=== PATIENT | female | born 1960 | race Caucasian/White ===

== ENCOUNTER 2020-01-08 05:32 | Observation (INO) ==
[2020-01-08] MEDS ORDERED: LORazepam 2 MG/ML VIAL ONE (05:38)
[2020-01-08] MEDS ORDERED: LORazepam 2 MG/ML VIAL IV ONE (05:41)
[2020-01-08 06:09] LABS: POC Blood Urea Nitrogen 28 mg/dl (6-20); POC CO2 14 mmol/L (22-30); POC Calcium, Ionized 1.15 mmol/L (1.16-1.32); POC Chloride 116 mmol/L (96-108); POC Creatinine 1.3 mg/dl (0.6-1.1); POC Glucose, Random 114 mg/dL (70-105); POC Sodium 140 mmol/L (133-145)
[2020-01-08 06:20] LABS: Basophils # (Auto) 0.04 K/mcL (0.00-0.30); Basophils % (Auto) 0.5 % (0.0-2.0); Eosinophils # (Auto) 0.05 K/mcL (0.00-0.70); Eosinophils % (Auto) 0.6 % (0.0-7.0); Granulocytes % (Auto) 74.4 % (38.0-78.0); Hematocrit 32.3 % (34.1-44.9); Hemoglobin 10.3 g/dL (11.2-15.7); Lymphocytes # (Auto) 1.65 K/mcL (1.50-4.80); Lymphocytes % (Auto) 18.9 % (15.5-49.0); Mean Corpuscular HGB Conc 31.9 g/dL (31.0-36.0); Mean Platelet Volume 10.5 fL (7.4-10.4); Monocytes # (Auto) 0.49 K/mcL (0.10-0.90); Monocytes % (Auto) 5.6 % (1.0-12.0); Platelet Count 187 K/mcL (140-440); RBC 3.02 M/mcL (3.59-5.38); WBC 8.7 K/mcL (4.50-11.00)
[2020-01-08 06:33] LABS: INR 1.1 (0.9-1.1); Prothrombin Time 14.2 sec (11.9-14.5)
--- NOTE | 2020-01-08 06:33 | Emergency Department Note ---
General Adult HPI - General Chief complaint: Seizure Stated complaint: seizure Time Seen by Provider: 01/08/20 05:49 Mode of arrival: EMS - History of Present Illness HPI Narrative: 59-year-old patient presenting to the emergency department chief complaint of fall. Past medical history is significant for falls, bipolar. The mechanism of fall was ground-level possibly mechanical/syncope/seizure related patient did have tonic-clonic seizure on arrival to the emergency department. Patient has not had recent change in medication. Patient somnolent on initial exam. Apparent injuries include ankle fracture dislocation. Potential closed head injury. Patient has had recent multiple falls. This fall was unwitnessed her aunt whom she lives with heard a loud thump. - Related Data Home Medications Medication Instructions Recorded Confirmed levothyroxine 50 mcg capsule 50 mcg PO QDAY 08/19/19 01/04/20 atenolol 25 mg tablet 25 mg PO QDAY tab 01/04/20 DULoxetine HCL [Cymbalta] 1 tab PO DAILY 01/08/20 01/08/20 Divalproex Sodium [Divalproex 3 tab PO HS 01/08/20 01/08/20 Sodium ER] QUEtiapine FUMARATE [Seroquel] 3 tab PO HS 01/08/20 01/08/20 Previous Rx's Medication Instructions Recorded nabumetone 500 mg tablet 500 mg PO BID #60 tab 09/14/19 gabapentin 800 mg tablet 1,600 mg PO BID #120 tab 10/11/19 hydroxychloroquine 200 mg tablet 200 mg PO BID #60 tab 11/23/19 amitriptyline 25 mg tablet 25 mg PO QHS #30 tab 12/28/19 cholecalciferol (vitamin D3) 1,250 See Rx Instructions .ROUTE 01/03/20 mcg (50,000 unit) capsule .COMPLEX #12 unknown measurement unit code: capsule eszopiclone 3 mg tablet 3 mg PO HS #30 tab 01/04/20 Crutch 1 each MC DAILY #1 each 01/08/20 Allergies Allergy/AdvReac Type Severity Reaction Status Date / Time naproxen [From Naprosyn] Allergy Unknown Rash Verified 01/04/20 09:00 Review of Systems All systems ED: reviewed and negative except as stated. Past Medical History - Past Medical History PMFSH Narrative: All Active Problems (Last Reviewed 01/04/20 @ 08:40 by Jose Manuel Chung MD) Acute on chronic renal failure (Chronic) Long-term use of high-risk medication (Acute) Essential hypertension (Chronic) Elevated serum creatinine (Chronic) Polyarthralgia (Acute) Rheumatoid factor positive (Acute) SUSIE positive (Acute) Tobacco abuse (Chronic) Anemia (Chronic) DVT prophylaxis (Chronic) Chronic kidney disease (Chronic) Falls (Acute) Contusion of knee, right (Acute) Ankle sprain (Acute) Anemia (Acute) Bradycardia (Acute) Taking multiple medications for chronic disease (Acute) Cigarette smoker (Chronic) Osteoarthritis (Chronic) Hyperlipidemia (Chronic) Depression (Chronic) Sleep apnea (Chronic) Menopause (Chronic) Back pain (Acute) Knee pain (Chronic) Hyperextension injury (Chronic) Medication monitoring encounter (Chronic) Preoperative examination (Chronic) Neck pain (Chronic) Tachycardia (Chronic) Anxiety (Chronic) Personality disorder (Chronic) Bipolar 1 disorder, depressed (Chronic) Cervical stenosis of spine (Chronic) Leg weakness, bilateral (Chronic) Gastroenteritis (Chronic) Acute renal failure (Chronic) Abnormal mammogram (Chronic) Weakness (Chronic) Frequent falls (Chronic) Normal physical examination (Chronic) Nonspecific abnormal results of kidney function study (Chronic) Hypothyroidism (Chronic) UTI (urinary tract infection) (Chronic) Cellulitis (Chronic) Pelvic contusion (Chronic) Dental abscess (Chronic) Erythematous papules of skin (Chronic) Infected wound (Chronic) Medical history: Reports: other (Chronic cervical and back pain) Psychiatric history: Reports: bipolar - Social History smoking status: Current every day smoker Alcohol use: Reports: Unknown Drug use: Reports: unknown Physical Exam Primary survey: Airway: Patient without visible external evidence of airway compromise no acute trauma to the oral maxillofacial area is appreciated Breathing: pt with spontaneous respirations, with excellent oxygenation on initial evaluation Circulation: Patient without obvious external hemorrhage in need of acute control, patient is perfusing extremities well without evidence of shock Disability: Basic neurological examination reveals somnolent controlling airway, is moving all extremities Secondary survey: General: sleepy however during the course of initial evaluation pt with impro ving GCS spontaneously Head: Atraumatic, normocephalic Eyes: Extraocular movements intact, PERRLA Neck: Trachea midline, full range of motion Chest: Symmetrical chest wall rise, clear to auscultation bilateral without wheezes rales crackles or rubs Cardiovascular: Patient with excellent perfusion to the extremities, regular rate and rhythm without M/R/G Abdomen: Nontender nondistended normoactive bowel sounds no masses no hepatosplenomegaly no rebound no guarding Extremities: Full range of motion joints, warm well perfused; right ankle with obvious deformity and crepitus clearly dislocated as pt was already sedated from combination of seizure and ativan this was reduced and x rays obtained, toes and pulse assessed at 06:21 with good perfusion Neuro: arousable, pulling intentionally at c-collar which was placed secondary to unknown trauma presentation, cranial nerves II through XII grossly intact Psychiatric: unassessable Course Vital Signs Pulse Rate 100 H 01/08/20 05:33 Respiratory Rate 17 01/08/20 05:33 Blood Pressure 111/58 01/08/20 05:33 Pulse Oximetry (%) 98 01/08/20 05:33 Pulse Rate 88 01/08/20 08:59 Respiratory Rate 21 01/08/20 08:59 Blood Pressure 137/75 01/08/20 08:46 Pulse Oximetry (%) 100 01/08/20 08:59 Procedures - Orthopedic Fracture Reduction Fracture #1 Time Out Performed: Yes Side: right Fracture Reduction Location: other (Right ankle bimalleolar) Analgesia: other (Patient with 2 mg Ativan was also postictal at that time, minimal evidence of pain) Technique: traction/counter-traction Post Reduction X-rays Demonstrate: acceptable reduction Post-reduction neuro exam: intact, other (Patient was moving toes as well as evidence of excellent perfusion) Splint Applied: Yes Patient Tolerated Procedure: well Medical Decision Making - MDM Narrative Medical decision making narrative: Focus of initial assessment was hemodynamic stability, however this was frequently reassessed during stay in the emergency department as this is a highly dynamic aspect of trauma. Focus was on injuries to the head chest abdomen and pelvis primarily with additional concerns for extremity injury taking care to avoid distracting injuries. Despite patient appearing uninjured aside from the right ankle we assumed there were potential severe injuries that we need to identify. Differential diagnosis for the fall includes medication induced, psychiatric disorders, syncope, presyncope, vertigo, electrolyte abnormality, hypoglycemia, cardiac arrhythmia, postural changes, dehydration, and brainstem lesions. Diana ent with x-rays and imaging to areas of concern to assess for potential fracture/dislocation. Patient with right ankle bimalleolar fracture dislocation. CT head neck noncontrast as well as CT chest abdomen pelvis were performed along with plain films of the right ankle. Consideration was given to intubation however patient's THERMOSPRAY OPERATOR improved even during just getting the ankle splinted. Given patient's recent multiple falls consideration given to admission to the hospital I actually discussed the case with the hospitalist as well as the cook house supervisor and we will admit the patient. - Lab Data Result diagrams: 01/08/20 06:01 01/08/20 06:01 Lab Results 01/08/20 01/08/20 01/08/20 Range/Units 06:01 06:01 06:01 WBC 8.7 (4.50-11.00) K/mcL RBC 3.02 L (3.59-5.38) M/mcL Hgb 10.3 L (11.2-15.7) g/dL Hct 32.3 L (34.1-44.9) % POC Hct 30.0 L (36.0-48.0) % MCV 107.0 H (80.0-100.0) fL MCH 34.1 H (26.0-34.0) pg MCHC 31.9 (31.0-36.0) g/dL RDW 14.0 (11.5-14.5) % Plt Count 187 (140-440) K/mcL MPV 10.5 H (7.4-10.4) fL Gran % 74.4 (38.0-78.0) % Lymph % (Auto) 18.9 (15.5-49.0) % Ralls % (Auto) 5.6 (1.0-12.0) % Eos % (Auto) 0.6 (0.0-7.0) % Baso % (Auto) 0.5 (0.0-2.0) % Gran # 6.49 (1.80-8.00) K/mcL Lymph # (Auto) 1.65 (1.50-4.80) K/mcL Ralls # (Auto) 0.49 (0.10-0.90) K/mcL Eos # (Auto) 0.05 (0.00-0.70) K/mcL Baso # (Auto) 0.04 (0.00-0.30) K/mcL PT 14.2 (11.9-14.5) sec INR 1.1 (0.9-1.1) POC Sodium 140 (133-145) mmol/L Sodium 139 (133-145) mmol/L POC Potassium 4.0 (3.3-5.1) mmol/L Potassium 3.8 (3.3-5.1) mmol/L POC Chloride 116 H (96-108) mmol/L Chloride 107 (96-108) mmol/L Carbon Dioxide 14 L (22-30) mmol/L POC Total CO2 14 L (22-30) mmol/L Anion Gap 18.0 H (8-16) POC BUN 28 H (6-20) mg/dl BUN 29 H (6-20) mg/dl Creatinine 1.3 H (0.6-1.1) mg/dl POC Creatinine 1.3 H (0.6-1.1) mg/dl GFR Calculation 46 Glucose 119 H (70-105) mg/dL POC Glucose 114 H (70-105) mg/dL Calcium 8.7 (8.6-10.4) mg/dl POC WB Ioniz Calcium 1.15 L (1.16-1.32) mmol/L Total Bilirubin 0.2 (0.0-1.0) mg/dL AST 70 H (0-37) U/l ALT 82 H (0-40) U/l Alkaline Phosphatase 103 (39-117) U/L Troponin T (0-0.03) ng/ml Total Protein 6.7 (5.9-8.4) gm/dL Albumin 3.8 (3.2-5.2) gm/dL Globulin 2.9 (2.2-3.7) gm/dL Albumin/Globulin Ratio 1.3 (1.0-2.3) 01/08/20 Range/Units 06:01 WBC (4.50-11.00) K/mcL RBC (3.59-5.38) M/mcL Hgb (11.2-15.7) g/dL Hct (34.1-44.9) % POC Hct (36.0-48.0) % MCV (80.0-100.0) fL MCH (26.0-34.0) pg MCHC (31.0-36.0) g/dL RDW (11.5-14.5) % Plt Count (140-440) K/mcL MPV (7.4-10.4) fL Gran % (38.0-78.0) % Lymph % (Auto) (15.5-49.0) % Ralls % (Auto) (1.0-12.0) % Eos % (Auto) (0.0-7.0) % Baso % (Auto) (0.0-2.0) % Gran # (1.80-8.00) K/mcL Lymph # (Auto) (1.50-4.80) K/mcL Ralls # (Auto) (0.10-0.90) K/mcL Eos # (Auto) (0.00-0.70) K/mcL Baso # (Auto) (0.00-0.30) K/mcL PT (11.9-14.5) sec INR (0.9-1.1) POC Sodium (133-145) mmol/L Sodium (133-145) mmol/L POC Potassium (3.3-5.1) mmol/L Potassium (3.3-5.1) mmol/L POC Chloride (96-108) mmol/L Chloride (96-108) mmol/L Carbon Dioxide (22-30) mmol/L POC Total CO2 (22-30) mmol/L Anion Gap (8-16) POC BUN (6-20) mg/dl BUN (6-20) mg/dl Creatinine (0.6-1.1) mg/dl POC Creatinine (0.6-1.1) mg/dl GFR Calculation Glucose (70-105) mg/dL POC Glucose (70-105) mg/dL Calcium (8.6-10.4) mg/dl POC WB Ioniz Calcium (1.16-1.32) mmol/L Total Bilirubin (0.0-1.0) mg/dL AST (0-37) U/l ALT (0-40) U/l Alkaline Phosphatase (39-117) U/L Troponin T < 0.01 (0-0.03) ng/ml Total Protein (5.9-8.4) gm/dL Albumin (3.2-5.2) gm/dL Globulin (2.2-3.7) gm/dL Albumin/Globulin Ratio (1.0-2.3) Critical Care Time Critical Care Time: Yes Total Critical Care Time: 60 Disposition Pt seen by ICEBOX WORKER/PA only: No Clinical Impression: Ankle fracture, bimalleolar, closed Qualifiers: Encounter type: initial encounter Laterality: right Qualified Code(s): S82.841A - Displaced bimalleolar fracture of right lower leg, initial encounter for closed fracture Epileptic seizure Qualifiers: Epilepsy type: generalized idiopathic Intractability: not intractable Status epilepticus: without status epilepticus Qualified Code(s): G40.309 - Generalized idiopathic epilepsy and epileptic syndromes, not intractable, without status epilepticus Disposition: Xfer As Outpt/Obs ([facility]) Condition: Good Prescriptions: Crutch 1 each MC DAILY #1 each Transmission Status: Pending to [facility][id number] Referrals: Rodrick Harris MD [Physician] -
[2020-01-08 06:40] LABS: ALT/SGPT 82 U/l (0-40); AST/SGOT 70 U/l (0-37); Albumin 3.8 gm/dL (3.2-5.2); Albumin/Globulin Ratio 1.3 (1.0-2.3); Alkaline Phosphatase 103 U/L (39-117); Bilirubin,Total 0.2 mg/dL (0.0-1.0); Blood Urea Nitrogen 29 mg/dl (6-20); Calcium 8.7 mg/dl (8.6-10.4); Chloride 107 mmol/L (96-108); Globulin 2.9 gm/dL (2.2-3.7); Glomerular Filtration Rate 46; Glucose 119 mg/dL (70-105)
[2020-01-08 06:44] LABS: Carbon Dioxide 14 mmol/L (22-30)
[2020-01-08] MEDS ORDERED: HYDROmorphone 2 MG/ML VIAL IV SCH ×2 (07:00→12:22)
--- NOTE | 2020-01-08 09:58 | Internal Med History&Physical ---
Medical - H&P: HPI Patient information: Note initiated : 01/08/20 at 9:52 am Service Date, if different from initiated Date: [] Patient: Abril Colon a 59 y/o F admitted on for seizure. Chief Complaint: [] Chief complaint: Fall/seizure History of present illness: Ms. Colon is a 59 year old F with a history of bipolar disorder/CKD stage III/hypertension/hypothyroidism/anxiety depression who presents to the ER after sustaining a fall With resulting right ankle injury. Patient lives with her aunt and was sneaking into the kitchen to place an Easter card for her Aunt. She had an episode where she endorses as similar to the previous ones where in her legs suddenly gave up and she fell. She was on a stair and landed on her right side twisting and injuring her right ankle. She was evaluated in the ER where she subsequently sustained an unwitnessed partial seizure. She was administered Ativan and subsequently underwent ankle reduction by ER physician. Imaging revealed ankle fracture and subsequently orthopedics was consulted. Hospital service consulted for admission While patient will undergo operative intervention. At time of evaluation patient is alert and was able to answer most the question and endorse history as above. She denies seizure-like episode. She denies vision changes chest pain tearing neck pain diaphoresis lightheadedness or vertigo. She has had multiple prior similar episode which he attributes to hypotension and her medications have been modified multiple times. She has had multiple falls in the past but in the last year has only 2 falls. She denies fever, chills, diarrhea, dysuria, headache, photophobia. 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 This leads to urine concentrating defect and makes her dehydration prone. Third issue is some of the side effects of her psychotropic medications in terms of her blood pressure Long-term use of high-risk medication (Acute) Essential hypertension (Chronic) No longer on beta-tru and RAASI therapy. 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 Polyarthralgia (Acute) Rheumatoid factor positive (Acute) SUSIE positive (Acute) Tobacco abuse (Chronic) Anemia (Chronic) DVT prophylaxis (Chronic) Chronic kidney disease (Chronic) Cigarette smoker (Chronic) Osteoarthritis (Chronic) Hyperlipidemia (Chronic) Depression (Chronic) Sleep apnea (Chronic) Menopause (Chronic) Back pain (Acute) Knee pain (Chronic) Hyperextension injury (Chronic) Medication monitoring encounter (Chronic) Preoperative examination (Chronic) Neck pain (Chronic) Tachycardia (Chronic) Anxiety (Chronic) Personality disorder (Chronic) Bipolar 1 disorder, depressed (Chronic) Cervical stenosis of spine (Chronic) Leg weakness, bilateral (Chronic) Gastroenteritis (Chronic) Acute renal failure (Chronic) Abnormal mammogram (Chronic) Weakness (Chronic) Frequent falls (Chronic) Normal physical examination (Chronic) Nonspecific abnormal results of kidney function study (Chronic) Hypothyroidism (Chronic) UTI (urinary tract infection) (Chronic) Cellulitis (Chronic) Pelvic contusion (Chronic) Dental abscess (Chronic) Erythematous papules of skin (Chronic) Infected wound (Chronic) Hypotension (Acute) Dehydration prone due to tubulointerstitial nephritis Medication induced hypotension certainly due to her KIRT inhibitor, high-dose beta-tru, and any effects of her psychotropic medications on her blood pressure. Minimum dose of KIRT inhibitor for her tremors and tachycardia, do not treat blood pressures less than 160/90 Surgical History Cervical vertebral fusion (Chronic) C6-C5 History of cholecystectomy (Chronic) History of surgery (Chronic) Cyst excised from the back History of tonsillectomy (Chronic) History of total knee arthroplasty (Chronic ~2011) Right Status post repair of nerve (Chronic ~2008) Neuroplasty with transposition of Ulnar Nerve Family History Other Adopted No pertinent family history Social History marital status: smoking status: Current every day smoker tobacco type: cigarettes per day: 4 pack-years: 30 alcohol intake frequency: former alcohol drinker substance use type: does not use Medical - H&P: Meds Home Medications Medication Instructions Recorded Confirmed Type levothyroxine 50 mcg capsule 50 mcg PO QDAY 08/19/19 01/08/20 History nabumetone 500 mg tablet 500 mg PO BID #60 tab 09/14/19 01/08/20 Rx gabapentin 800 mg tablet 1,600 mg PO BID #120 tab 10/11/19 01/08/20 Rx hydroxychloroquine 200 mg tablet 200 mg PO BID #60 tab 11/23/19 01/08/20 Rx amitriptyline 25 mg tablet 25 mg PO QHS #30 tab 12/28/19 01/08/20 Rx cholecalciferol (vitamin D3) 1,250 See Rx Instructions .ROUTE 01/03/20 01/08/20 Rx mcg (50,000 unit) capsule .COMPLEX #12 unknown measurement unit code: capsule atenolol 25 mg tablet 25 mg PO QDAY tab 01/04/20 01/08/20 History eszopiclone 3 mg tablet 3 mg PO HS #30 tab 01/04/20 01/08/20 Rx Crutch 1 each MC DAILY #1 each 01/08/20 Rx DULoxetine HCL [Cymbalta] 1 tab PO DAILY 01/08/20 01/08/20 History Divalproex Sodium [Divalproex 3 tab PO HS 01/08/20 01/08/20 History Sodium ER] QUEtiapine FUMARATE [Seroquel] 3 tab PO HS 01/08/20 01/08/20 History Allergies Allergy/AdvReac Type Severity Reaction Status Date / Time naproxen [From Naprosyn] Allergy Unknown Rash Verified 01/04/20 09:00 Medical - H&P: Exam - Constitutional Vitals: Pulse Resp BP Pulse Ox 88 21 137/75 100 01/08/20 08:59 01/08/20 08:59 01/08/20 08:46 01/08/20 08:59 General appearance: no acute distress Exam: Alert oriented head normocephalic Oral cavity dry no ear nose discharge Neck no lymphadenopathy S1-S2 regular rhythm no murmur Diminished breath sounds bases Abdomen soft nontender nondistended Lower extremity right ankle stabilized, no cyanosis clubbing or joint swelling erythema Skin no suspicious lesion Psych alert cooperative Neuro moving all 4 extremities Medical - H&P: Reslt - Labs CBC & Chem 7: 01/08/20 06:01 01/08/20 06:01 Labs: Short CBC 01/08/20 Range/Units 06:01 WBC 8.7 (4.50-11.00) K/mcL Hgb 10.3 L (11.2-15.7) g/dL Hct 32.3 L (34.1-44.9) % Plt Count 187 (140-440) K/mcL BMP 01/08/20 06:01 Sodium 139 Potassium 3.8 Chloride 107 Carbon Dioxide 14 L BUN 29 H Creatinine 1.3 H Glucose 119 H Calcium 8.7 Cardiac Enzymes 01/08/20 Range/Units 06:01 Troponin T < 0.01 (0-0.03) ng/ml Liver Function 01/08/20 Range/Units 06:01 Total Bilirubin 0.2 (0.0-1.0) mg/dL AST 70 H (0-37) U/l ALT 82 H (0-40) U/l Alkaline Phosphatase 103 (39-117) U/L Albumin 3.8 (3.2-5.2) gm/dL Medical - H&P: A/P (1) Ankle fracture, bimalleolar, closed Current visit: Yes Status: Acute * Right bimalleolar ankle fracture-immobilization/orthopedic evaluation * Pain management on as needed opioids * Witnessed seizure-status post 2 mg Ativan in ER * Frequent fall -unclear etiology. Start telemetry monitoring for arrhythmia/neurochecks/seizure watch/echocardiogram/orthostatics. Aggressive PT OT eval and treatment for gait and safety training * Hypertension-hold atenolol at this time. 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
[2020-01-08 11:29] LABS: Amphetamine Screen,Urine NONE DETECTED (NONDETECTED); Appearance,Urine CLEAR; Barbiturate Screen,Urine NONE DETECTED (NONDETECTED); Benzodiazepines Screen,Urine NONE DETECTED (NONDETECTED); Bilirubin,Urine NEG (NEG); Cannabinoid Screen,Urine NONE DETECTED (NONDETECTED); Cocaine Screen,Urine NONE DETECTED (NONDETECTED); Color,Urine STRAW; Culture Indicated,Urine NO; Glucose,Urine (UA) NEGATIVE (NEG); Ketones,Urine NEG (NEG); Leukocyte Esterase,Urine NEG /uL (NEG); Nitrate,Urine NEG (NEG); Opiate Screen,Urine NONE DETECTED (NONDETECTED); Oxycodone, Urine Screen NONE DETECTED (NONDETECTED); Phencyclidine Screen,Urine NONE DETECTED (NONDETECTED); Protein,Urine NEG (NEG); Specific Gravity,Urine 1.029 (1.000-1.035); Urine Blood NEG mg/dL (<0.03); Urobilinogen,Urine NEG (NEG)
--- NOTE | 2020-01-08 11:39 | XRay Report ---
CLINICAL INFORMATION: fall COMPARISON: None. FINDINGS: A mildly comminuted obliquely oriented Sepulveda B fracture of the distal fibular metaphysis appreciated. The proximal fragment is displaced 3 mm anteriorly and 3 mm medially. There is also a transverse mildly comminuted and minimally displaced fracture through the medial malleolus. There is a coronally oriented fracture through the posterior malleolus. Tibial plafond is displaced over 8 mm anteriorly. Moderate ankle effusion noted. IMPRESSION: Comminuted oblique displaced trimalleolar fracture Small transverse avulsion fracture off the dorsal cortex of the talar neck age-indeterminate. Old ununited fracture of the dorsal navicular. Interpreted and Authenticated by: Salas Freeman 01/08/20
--- NOTE | 2020-01-08 11:49 | Cat Scan Report ---
CLINICAL INFORMATION: Trauma COMPARISON: 05/09/2018 TECHNIQUE: 2.5 mm helical slices were obtained in the skull base to vertex. Following reconstruction, axial reformatted images were reviewed at bone and parenchymal windows. The exam was performed using radiation dose optimization techniques including, but not limited to, automated exposure control, adjustment of the mA and/or kV according to patient size and use of iterative reconstruction technique. FINDINGS: The ventricles, sulci, fissures, and cisterns are normal to minimally enlarged bowel with mild age-related atrophy. No extra-axial fluid collections are identified. An 8 mm remote lacunar infarct in the head of the left caudate nucleus is again seen. Minimal chronic ischemic changes in the cerebral white matter. There is no evidence of hemorrhage, mass effect, or edema. Bone windows show no osseous abnormality. IMPRESSION: Mild atrophy and minimal chronic ischemic changes in the deep cerebral white matter. 8 mm remote lacunar infarct head of the left caudate nucleus. No cerebral hemorrhage or acute posttraumatic change Interpreted and Authenticated by: Salas Freeman 01/08/20
[2020-01-08] MEDS ORDERED: ACETAMINOPHEN 325 MG TABLET PO PRN (12:22)
[2020-01-08] MEDS ORDERED: POTASSIUM CHLORIDE 20 MEQ PACKET PO PRN (12:22)
[2020-01-08] MEDS ORDERED: ACETAMINOPHEN 650 MG/65 ML BOTTLE IV PRN (12:22)
[2020-01-08] MEDS ORDERED: ONDANSETRON 4 MG/2 ML VIAL IV PRN (12:22)
[2020-01-08] MEDS ORDERED: POLYETHYLENE GLYCOL 3350 17 GM PACKET PO PRN (12:22)
[2020-01-08] MEDS ORDERED: BISACODYL 10 MG SUPP.RECT PR PRN (12:22)
[2020-01-08] MEDS ORDERED: ONDANSETRON 4 MG ODT TABLET SL PRN (12:22)
--- NOTE | 2020-01-08 12:23 | Cat Scan Report ---
CLINICAL INFORMATION: Trauma COMPARISON: Cervical spine MRI 01/21/2019 TECHNIQUE: 0.625 mm helical slices were obtained from the skull base through the superior T2 end plate, and following reconstruction, 2.5 mm sagittal, coronal and axial reformations were then processed. The exam was reviewed at bone and soft tissue windows. The exam was performed using radiation dose optimization techniques including, but not limited to, automated exposure control, adjustment of the mA and/or kV according to patient size and use of iterative reconstruction technique. FINDINGS: Solid anterior fusion changes C4-5 is provided by interbody graft, anterior plate and screws. There is also solid fusion between C6 and C7 vertebral bodies which may be congenital or surgical. The cervical spine is anatomically aligned. Cervical cord is normal in contour and caliber without evidence of hemorrhage. There is mild thickening of the soft tissues in the expected location the cricopharyngeus which may indicate fibrosis - please correlate with dysphagia. The left first and second maxillary molars are absent soft tissue within the alveolar region likely indicating fibrosis or less likely formation. There is heavy calcific plaque present in both carotid arteries more prominent on the right. The C2-3 disc level is normal. At C3-4, there is mild broad disc protrusion right-sided asymmetry results in mild central canal and right lateral recess IV foraminal narrowing. At C4-5 fused level, there is moderate marginal spurring resulting in moderate central canal, severe right and mild left lateral recess/ IV foraminal narrowing impinging the exiting right C5 nerve root At C5-6, the central canal, lateral recess and IV foramen are normal width. At C6-7 minimal broad disc protrusion slightly impinging the anterior thecal sac At C7-T1 disc level is normal. IMPRESSION: 1. No fracture or posttraumatic change. 2. Heavy calcific plaque in both carotid bifurcations. On the basis of both today's exam and the prior cervical MRI, there is almost certainly a high-grade stenosis in the proximal right internal carotid artery. Suggest CT arteriogram. 3. C4-5 anterior fusion - solid. Moderate marginal spurring results in moderate central canal and severe right lateral recess/ IV foraminal mild left lateral recess narrowing with impingement of the exiting right C5 nerve root. Mild impingement of the cervical cord. 4. Mild fibrosis in the cricopharyngeal region of the cervical esophagus - please correlate with dysphagia Interpreted and Authenticated by: Salas Freeman 01/08/20
--- NOTE | 2020-01-08 12:34 | Cat Scan Report ---
CLINICAL INFORMATION: Trauma COMPARISON: None. TECHNIQUE: Enteric contrast was utilized. 80 cc of Isovue-370 were injected intravenously, and 50 seconds later 2.5 mm helical slices were obtained from the lung apices through the subtrochanteric regions of the femurs. Following reconstruction, 2.5 mm sagittal, coronal and axial reformatted images were processed and reviewed at multiple windows and levels. 7 mm MIP reconstructions were obtained through the lungs to optimize nodule detection.The exam was performed using radiation dose optimization techniques including, but not limited to, automated exposure control, adjustment of the mA and/or kV according to patient size and use of iterative reconstruction technique. FINDINGS: Pulmonary parenchymal windows show minimal scattered patchy ground glass airspace disease without both lungs of uncertain etiology and chronicity. There is also minor atelectasis both posterior dependent lower lobes. No effusions or evidence of pneumothorax following trauma. The mediastinal windows show the heart is mildly enlarged. Thoracic aorta and pulmonary arteries are normal with no evidence of mediastinal hemorrhage. The esophagus is unremarkable. There is no adenopathy. Sumit images show the gallbladder is surgically absent. The intrahepatic common hepatic and common bile ducts are moderately dilated - CBD is 12 mm. Findings suggestive of postcholecystectomy papillary stenosis. The liver shows no abnormality. The pancreas, both kidneys, adrenal glands, spleen and aorta are normal in size configuration and attenuation without focal lesion. There is no free air, free fluid or adenopathy Pelvic images show portable postmenopausal uterus. Ovaries not identified likely due to atrophy in the urinary bladder is normal. The stomach, small bowel, appendix and large bowel are unremarkable. Bone windows show grade 1 spondylolisthesis due to degenerative facet disease with broad disc protrusion resulting in severe central canal bilateral lateral recess and IV foraminal narrowing with impingement of the exiting L4 and descending L5 nerve roots. There is no evidence of fracture throughout the chest abdomen or pelvis IMPRESSION: 1. No acute posttraumatic change throughout the chest, abdomen or pelvis. 2. Vague patchy groundglass airspace disease throughout both lungs of uncertain chronicity and etiology. Suggest two-view upright chest x-ray one to two days if the patient develops respiratory symptoms. 3. Grade 1 L4-5 spondylolisthesis with broad disc protrusion resulting in moderate central canal and severe bilateral lateral recess/ IV foraminal narrowing impinging exiting L4 and descending L5 nerve roots. 4. Dilatation of the intrahepatic and common bile ducts suggesting postcholecystectomy papillary stenosis at please correlate with obstructive LFT pattern Interpreted and Authenticated by: Salas Freeman 01/08/20
[2020-01-08] MEDS: HYDROmorphone 2 MG/ML VIAL IV PRN ×3 (13:30→19:05)
[2020-01-08] MEDS: 0.9 % SODIUM CHLORIDE 10 ML SYRINGE IV SCH ×2 (13:38→20:38)
[2020-01-08] MEDS: 0.9 % SODIUM CHLORIDE 1,000 ML IV SCH (13:38)
[2020-01-08] MEDS: HYDROcodone/APAP 5/325MG TABLET PO PRN ×2 (15:57→20:36)
--- NOTE | 2020-01-08 17:08 | History and Physical Report ---
DATE OF ADMISSION: 01/08/2020 CHIEF COMPLAINT: Right ankle pain. HISTORY OF PRESENT ILLNESS: This is a 59-year-old female who presented to the Emergency Department last evening in the middle of the night, complaining of right ankle pain after sustaining a fall. She reports she felt like her blood pressure was low, which resulted in her fall. She does report multiple falls in the past, but denies any fever, chills, headache, dizziness, or any other significant pain currently. I was consulted to further evaluate her right ankle pain, which resulted in a trimalleolar ankle fracture. REVIEW OF SYSTEMS: A 10-point review of system was performed was negative except as noted in HPI. PAST MEDICAL HISTORY: Significant for bipolar disorder; chronic kidney disease, stage III; hypertension; hypothyroidism; anxiety; depression. SURGICAL HISTORY: Noncontributory. FAMILY HISTORY: The patient was adopted and has no pertinent family history. SOCIAL HISTORY: The patient does admit to being a current every day smoker. She also admits to being a former alcohol user. She denies any recreational drug use. MEDICATIONS: Include: 1. Levothyroxine 50 mcg p.o. every day. 2. Nabumetone 500 mg p.o. b.i.d. 3. Gabapentin 800 mg, she takes 1600 mg p.o. b.i.d. 4. Hydroxychloroquine 200 mg p.o. b.i.d. 5. Amitriptyline 25 mg p.o. at bedtime. 6. Vitamin D3. 7. Atenolol 25 mg p.o. every day. 8. Eszopiclone 3 mg p.o. at bedtime. 9. Duloxetine 1 tab p.o. daily. 10. Divalproex 3 tabs p.o. at bedtime. 11. Seroquel 3 tabs p.o. at bedtime. ALLERGIES: Include naproxen, which resulted in a rash. PHYSICAL EXAMINATION: VITAL SIGNS: Blood pressure is 137/75, pulse 88, respirations 21, pulse ox is 100% on room air. GENERAL: The patient is resting comfortably currently and does not appear to be in any acute distress. HEENT: The head is normocephalic, atraumatic. Eyes are equal, round, reactive to light and accommodation. ENT is otherwise unremarkable. NECK: Supple, without lymphadenopathy. RESPIRATORY: Lungs are diminished bilaterally in the bases without any obvious wheezes, rhonchi, or crackles. ABDOMEN: Soft, nondistended, nontender to palpation. Bowel sounds are present in all 4 quadrants. EXTREMITIES: Right lower extremity, the ankle inspection reveals diffuse swelling and ecchymosis over the dorsum and medial and lateral aspects of the ankle without evidence of an open fracture. Passive and active range of motion of the ankle is limited due to pain. There is diffuse tenderness to palpation over the medial and lateral malleolus as well as diffusely over the dorsum of the foot and ankle. Distal sensation, capillary refill, and pulses are normal. PSYCHIATRIC: The patient is alert and oriented x3. She is cooperative. NEUROLOGIC: The patient is grossly neurovascularly intact. LABORATORY DATA: Please see hospitalist's H and P for specific lab values. Imaging of the right ankle reveals a comminuted obliquely oriented Sepulveda B fracture of the distal fibula as well as a transverse mildly comminuted and minimally displaced fracture through the medial malleolus. There is a posterior malleolus fracture present as well as subluxation of the ankle. ASSESSMENT: Right comminuted and displaced trimalleolar ankle fracture. PLAN: After consulting the patient regarding various treatment options, we have elected to proceed with an open reduction and internal fixation of the right comminuted and displaced trimalleolar ankle fracture. Risk, complications, and possible indications were discussed with the patient, she would like to proceed with surgery. Dr. Harris was consulted and Dr. Sahni will likely be performing the open reduction and internal fixation. The patient will remain immobilized and nonweightbearing on the right lower extremity. Until surgery, I would like her to be n.p.o. this evening for possible surgery tomorrow. The fracture was reduced by the emergency physician and apparently received adequate reduction though I do not see any post-reduction radiographs. The patient agrees with this plan. Questions were addressed. KATHIA:bethany Job ID: [id number] Doc ID: [id number] Elgin Messer PA-C
[2020-01-08] MEDS: GABAPENTIN 400 MG CAPSULE PO SCH (20:34)
[2020-01-08] MEDS: AMITRIPTYLINE 25 MG TABLET PO SCH (20:35)
[2020-01-08] MEDS: HYDROXYCHLOROQUINE 200 MG TABLET PO SCH (20:35)
[2020-01-08] MEDS: SENNOSIDES/DOCUSATE SODIUM 1 TAB TABLET PO SCH (20:35)
[2020-01-08] MEDS: DIVALPROEX SODIUM 250 MG TABLET PO SCH (20:35)
[2020-01-08] MEDS: QUEtiapine 100 MG TABLET PO SCH (20:36)
[2020-01-08] MEDS: ZOLPIDEM 5 MG TABLET PO SCH (20:36)
[2020-01-08] MEDS: MELATONIN 3 MG TABLET PO PRN (20:37)
[2020-01-08] MEDS: DOCUSATE SODIUM 100 MG CAPSULE PO SCH (20:37)
[2020-01-08] MEDS: HEPARIN 5,000 UNIT/ML VIAL SQ SCH (20:38)
[2020-01-09] MEDS: HYDROcodone/APAP 5/325MG TABLET PO PRN ×4 (00:28→20:43)
[2020-01-09] MEDS: HYDROmorphone 2 MG/ML VIAL IV PRN ×2 (00:40→07:47)
[2020-01-09] MEDS: 0.9 % SODIUM CHLORIDE 10 ML SYRINGE IV SCH ×3 (05:25→20:45)
[2020-01-09 06:31] LABS: Hematocrit 27.6 % (34.1-44.9); Mean Cell Volume 104.9 fL (80.0-100.0); Mean Corpuscular HGB Conc 32.6 g/dL (31.0-36.0); Mean Platelet Volume 11.2 fL (7.4-10.4); Platelet Count 163 K/mcL (140-440); RBC 2.63 M/mcL (3.59-5.38); Red Cell Distribution Width 14.2 % (11.5-14.5); WBC 5.2 K/mcL (4.50-11.00)
[2020-01-09 07:05] LABS: ALT/SGPT 92 U/l (0-40); AST/SGOT 125 U/l (0-37); Albumin/Globulin Ratio 1.2 (1.0-2.3); Alkaline Phosphatase 149 U/L (39-117); Bilirubin,Direct < 0.2 mg/dL (0.0-0.3); Bilirubin,Total 0.3 mg/dL (0.0-1.0); Calcium 8.6 mg/dl (8.6-10.4); Globulin 2.6 gm/dL (2.2-3.7); Glucose 73 mg/dL (70-105); Lactate Dehydrogenase 269 U/L (94-250); Phosphorous 3.7 mg/dL (2.7-4.5); Triglycerides 52 mg/dl (<150); Uric Acid 5.8 mg/dL (2.5-8.0)
[2020-01-09 07:07] LABS: Blood Urea Nitrogen 18 mg/dl (6-20); Carbon Dioxide 20 mmol/L (22-30); Chloride 111 mmol/L (96-108); Glomerular Filtration Rate 62
[2020-01-09 07:33] LABS: Band Neutrophils % 4 % (0-10); Eosinophils % (Manual) 3 % (0-7); Lymphocytes % 33 % (15-49); Macrocytosis 1+ (NONE SEEN); Monocytes % (Manual) 6 % (1-12); Platelet Estimate NORMAL (NORMAL); RBC Morphology ABNORM (NORMAL); Segmented Neutrophils % 54 % (38-78)
--- NOTE | 2020-01-09 07:41 | Orthopedic Progress Note ---
Subjective Patient information: Note initiated : 01/09/20 at 7:36 am Service Date, if different from initiated Date: [] Patient: Abril Colon 59 y/o F admitted on 01/08/20 for seizure. Chief Complaint: [] Principal diagnosis: right ankle fracture dislocation Objective Vital signs: Vital Signs Temp Pulse Pulse Resp BP BP BP 01/09/20 06:00 81 16 108/61 01/09/20 04:00 97.7 F 16 01/09/20 02:00 78 16 96/53 01/09/20 00:10 97.8 F 16 100/52 01/08/20 22:00 98.0 F 16 98/53 01/08/20 20:00 98.1 F 16 98/52 01/08/20 18:00 97 F 20 117/67 01/08/20 16:45 97.9 F 16 100/48 01/08/20 16:00 97.4 F 01/08/20 14:21 97 F 16 133/79 01/08/20 12:23 85 20 134/74 01/08/20 12:22 97.6 F 20 162/89 01/08/20 12:01 13 124/77 01/08/20 11:46 85 20 134/74 01/08/20 11:31 88 16 120/62 01/08/20 11:16 88 135/86 01/08/20 11:01 19 119/89 01/08/20 10:46 87 132/74 01/08/20 10:31 89 14 113/78 01/08/20 10:19 88 18 01/08/20 10:16 88 14 101/75 01/08/20 10:01 90 13 98/85 01/08/20 09:46 87 15 104/86 01/08/20 09:31 88 12 112/90 01/08/20 09:16 89 13 122/81 01/08/20 09:01 92 H 20 95/74 01/08/20 08:59 88 21 01/08/20 08:46 89 13 137/75 01/08/20 08:31 86 17 133/91 01/08/20 08:17 14 142/76 01/08/20 08:01 90 16 143/87 01/08/20 07:50 14 140/83 01/08/20 07:47 16 124/107 BP Pulse Ox 01/09/20 06:00 98 01/09/20 04:00 102/62 97 01/09/20 02:00 98 01/09/20 00:10 97 01/08/20 22:00 96 01/08/20 20:00 96 01/08/20 18:00 98 01/08/20 16:45 99 01/08/20 16:00 01/08/20 14:21 100 01/08/20 12:23 100 01/08/20 12:22 100 01/08/20 12:01 01/08/20 11:46 100 01/08/20 11:31 100 01/08/20 11:16 100 01/08/20 11:01 100 01/08/20 10:46 100 01/08/20 10:31 100 01/08/20 10:19 100 01/08/20 10:16 100 01/08/20 10:01 96 01/08/20 09:46 100 01/08/20 09:31 100 01/08/20 09:16 100 01/08/20 09:01 100 01/08/20 08:59 100 01/08/20 08:46 100 01/08/20 08:31 100 01/08/20 08:17 01/08/20 08:01 100 01/08/20 07:50 100 01/08/20 07:47 96 Intake and Output 01/08/20 01/09/20 01/09/20 21:59 05:59 13:59 Intake Total 480 Output Total 400 175 Balance -400 305 Intake: Oral 480 Output: Void Amount 400 175 Other: Meal Lunch Percent of Meal Consumed 75% Feeding Ability Assist with Tray Set Up Urine Appearance Clear Urine Color Dark Yellow # Bowel Movements 0 Weight 190 lb 6.4 oz Intake & Output: Intake & Output 01/08/20 01/09/20 01/09/20 21:59 05:59 13:59 Intake Total 480 Output Total 400 175 Balance -400 305 Weight 190 lb 6.4 oz Intake: Oral 480 Output: Void Amount 400 175 Other: Meal Lunch Percent of Meal Consumed 75% Feeding Ability Assist with Tray Set Up Urine Appearance Clear Urine Color Dark Yellow # Bowel Movements 0 Weight bearing status: non Additional Comments: moderated degree of swelling about the ankle with echymosis, skin is intact. Medial aspect of ankle with significant echymosis, skin very thin but no fracture blisters. no ángel lines present. sensation intact throughout foot including plantar sensation. Foot warm well perfused.d - Labs CBC & BMP: 01/09/20 04:59 01/09/20 04:59 Labs: Orthopedic Labs 01/08/20 06:01 PT 14.2 INR 1.1 01/09/20 04 04:59 06:01 Hgb 9.0 L 10.3 L Hct 27.6 L 32.3 L Assessment and Plan - Narrative A/P Narrative: HD2 with fracture dislocation of right ankle. Was admitted for observation and potential operative fixation of right ankle fracture. I do not plan for operative fixation today given the soft tissue envelope about the ankle is not amendable to surgery at this time. She has a higher risk of wound complications at baseline given underlying RA, hypothyroidism. Did discuss this with her the reason for delaying surgery. Splint was removed today and placed into a new splint with the ankle in neutral and molded to reduce the mortise via a short leg plaster splint. Will obtain repeat radiographs as well. OK to d/c and proceed with surgery on an outpatient basis. She will be non weight bearing until surgery and most likely 6 weeks post surgery. Should follow up with orthopedics in 1 week- next thursday for repeat evaluation. Keep extremity elevated as much as possible to aid in swelling reduction. Keep splint clean, dry and intact until follow up with orthopedics.
[2020-01-09] MEDS: LEVOTHYROXINE 50 MCG TABLET PO SCH (07:46)
--- NOTE | 2020-01-09 07:59 | XRay Report ---
CLINICAL INFORMATION: Status post closed reduction right trimalleolar fracture TECHNIQUE: AP, oblique, lateral right ankle COMPARISON: None. FINDINGS: Bony detail tear by overlying cast. Essentially anatomic alignment following closed reduction of right trimalleolar fracture. IMPRESSION: Status post close reduction, right trimalleolar fracture. Interpreted and Authenticated by: Salas Eaton 01/09/20
--- NOTE | 2020-01-09 09:30 | Ultrasound Report ---
CLINICAL INFORMATION: Recurrent falls COMPARISON: None. TECHNIQUE: Carotid arteries were imaged in sagittal and transverse planes using 5 mHz linear probe: Doppler, color, and 2D. FINDINGS: Heterogeneous atherosclerotic plaque in the proximal right internal carotid artery. Minimal plaque in the proximal left internal carotid artery. There is no detectable ulceration. Maximum Systolic Flow Velocity: - Right common carotid artery: 72 cm/sec - Right internal carotid artery: 184 cm/sec - Left common carotid artery: 109 cm/sec - Left internal carotid artery: 75 cm/sec Internal carotid artery to common carotid artery measures 2.6 on the right. Appearance is consistent with 50-69% diameter stenosis. No evidence for hemodynamically significant stenosis in the left internal carotid artery. Vertebral arteries antegrade patent. IMPRESSION: 1. Heterogeneous atherosclerotic plaque in the proximal internal carotid artery, right worse than left 2. 50-69% diameter stenosis in the proximal right internal carotid artery Interpreted and Authenticated by: Salas Eaton 01/09/20
[2020-01-09] MEDS: DULoxetine 30 MG CAPSULE PO SCH (09:42)
[2020-01-09] MEDS: HEPARIN 5,000 UNIT/ML VIAL SQ SCH ×2 (09:42→20:42)
[2020-01-09] MEDS: HYDROXYCHLOROQUINE 200 MG TABLET PO SCH ×2 (09:42→20:44)
[2020-01-09] MEDS: THIAMINE 100 MG TABLET PO SCH (09:42)
[2020-01-09] MEDS: MULTIVIT,THER IRON,CA,FA & MIN 1 TABLET PO SCH (09:42)
[2020-01-09] MEDS: GABAPENTIN 400 MG CAPSULE PO SCH ×2 (09:42→20:43)
[2020-01-09] MEDS: DOCUSATE SODIUM 100 MG CAPSULE PO SCH ×2 (09:43→20:44)
--- NOTE | 2020-01-09 12:15 | Internal Med Progress Note ---
Medical - PN: Subj Patient information: Note initiated : 01/09/20 at 12:10 pm Service Date, if different from initiated Date: [] Patient: Abril Colon a 59 y/o F admitted on 01/08/20 for seizure. Chief Complaint: [] Interval history: Ms. Colon is a 59 year old F with a history of bipolar disorder/CKD stage II I/hypertension/hypothyroidism/anxiety depression who presents to the ER after sustaining a fall With resulting right ankle injury. Patient lives with her aunt and was sneaking into the kitchen to place an Easter card for her Aunt. She had an episode where she endorses as similar to the previous ones where in her legs suddenly gave up and she fell. She was on a stair and landed on her right side twisting and injuring her right ankle. She was evaluated in the ER where she subsequently sustained an unwitnessed partial seizure. She was administered Ativan and subsequently underwent ankle reduction by ER physician. Imaging revealed ankle fracture and subsequently orthopedics was consulted. Hospital service consulted for admission While patient will undergo operative intervention. At time of evaluation patient is alert and was able to answer most the question and endorse history as above. She denies seizure-like episode. She denies vision changes chest pain tearing neck pain diaphoresis lightheadedness or vertigo. She has had multiple prior similar episode which he attributes to hypotension and her medications have been modified multiple times. She has had multiple falls in the past but in the last year has only 2 falls. She denies fever, chills, diarrhea, dysuria, headache, photophobia. 01/08-patient doing well. Per orthopedics surgery would be delayed until improve d swelling due to risk of localized wound and delayed healing. Await transfer to care center coordination underway by case management. Creatinine down to 1 LFTs gradually up trending. Hemoglobin 9. Bilateral chest infiltrates on antibiotic coverage(likely aspiration during seizure episode). No overnight seizure or telemetry events, sinus rhythm. No orthostasis. Carotid Doppler right ICA 50 to 69% stenosis. Echocardiogram pending. - Constitutional Vitals: Vital Signs Temp Pulse Resp BP Pulse Ox 97.0 F 72 16 121/68 99 01/09/20 08:00 01/09/20 08:00 01/09/20 08:00 01/09/20 08:00 01/09/20 08:00 Period Temp Pulse Resp BP Sys/Puckett Pulse Ox Last 24 Hr 97 F-98.1 F 72-85 16-20 96-162/48-89 96-100 Intake and Output 01/08/20 01/09/20 01/09/20 21:59 05:59 13:59 Intake Total 480 Output Total 400 175 300 Balance -400 305 -300 Weight 190 lb 6.4 oz Intake & Output: Intake & Output 01/08/20 01/09/20 01/09/20 21:59 05:59 13:59 Intake Total 480 Output Total 400 175 300 Balance -400 305 -300 Weight 190 lb 6.4 oz Intake: Oral 480 Output: Void Amount 400 175 300 Other: Meal Lunch Percent of Meal Consumed 75% Feeding Ability Assist with Tray Set Up Urine Appearance Clear Urine Color Dark Yellow Straw Urine Odor Normal # Bowel Movements 0 General appearance: no acute distress Exam: Alert oriented Nonlabored breathing No anxiety No telemetry events No further seizure episodes Medical - PN: Obj Da - Labs CBC & Chem 7: 01/09/20 04:59 01/09/20 04:59 Labs: Abnormal Lab Results 01/09/20 01/09/20 01/08/20 04:59 04:59 06:01 RBC 2.63 L Hgb 9.0 L Hct 27.6 L POC Hct 30.0 L MCV 104.9 H MCH 34.2 H MPV 11.2 H RBC Morphology Abnorm A Macrocytosis 1+ A POC Chloride 116 H Chloride 111 H Carbon Dioxide 20 L 14 L POC Total CO2 14 L Anion Gap 18.0 H POC BUN 28 H BUN 29 H Creatinine 1.3 H POC Creatinine 1.3 H Glucose 119 H POC Glucose 114 H POC WB Ioniz Calcium 1.15 L GGT 193 H AST 125 H 70 H ALT 92 H 82 H Alkaline Phosphatase 149 H Lactate Dehydrogenase 269 H Total Protein 5.6 L Albumin 3.0 L 01/08/20 06:01 RBC 3.02 L Hgb 10.3 L Hct 32.3 L POC Hct MCV 107.0 H MCH 34.1 H MPV 10.5 H RBC Morphology Macrocytosis POC Chloride Chloride Carbon Dioxide POC Total CO2 Anion Gap POC BUN BUN Creatinine POC Creatinine Glucose POC Glucose POC WB Ioniz Calcium GGT AST ALT Alkaline Phosphatase Lactate Dehydrogenase Total Protein Albumin Meds: Medications Acetaminophen (Tylenol) 650 mg PO Q4-6HP PRN; Protocol PRN Reason: Per Pain Protocol/Fever > 101 Hydrocodone Bitart/Acetaminophen ([place] 5/325mg) 0 tab PO Q4HP PRN; Protocol PRN Reason: Per Pain Protocol Last Admin: 01/09/20 00:28 Dose: 2 tab Documented by: Amitriptyline HCl (Elavil) 25 mg PO QHS [facility] Last Admin: 01/08/20 20:35 Dose: 25 mg Documented by: Bisacodyl (Dulcolax) 10 mg MA Q2-3DAYS PRN PRN Reason: Constipation Divalproex Sodium (Depakote Er) 1,500 mg PO [facility] Last Admin: 01/08/20 20:35 Dose: 1,500 mg Documented by: Docusate Sodium (Colace) 100 mg PO BID [facility] Last Admin: 01/09/20 09:43 Dose: 100 mg Documented by: Duloxetine HCl (Cymbalta) 60 mg PO DAILY [facility] Last Admin: 01/09/20 09:42 Dose: 60 mg Documented by: Gabapentin (Neurontin) 1,600 mg PO BID [facility] Last Admin: 01/09/20 09:42 Dose: 1,600 mg Documented by: Heparin Sodium (Porcine) (Heparin) 5,000 unit SQ Q12 [facility] Last Admin: 01/09/20 09:42 Dose: 5,000 unit Documented by: Hydromorphone HCl (Dilaudid) 0 mg IV Q4HP PRN; Protocol PRN Reason: Per Pain Protocol Last Admin: 01/09/20 07:47 Dose: 0.5 mg Documented by: Hydroxychloroquine Sulfate (Plaquenil) 200 mg PO BID [facility] Last Admin: 01/09/20 09:42 Dose: 200 mg Documented by: Sodium Chloride (Sodium Chloride 0.9%) 1,000 mls @ 50 mls/hr IV .Q20H [facility] Stop: 01/11/20 00:21 Last Admin: 01/08/20 13:38 Dose: 50 mls/hr Documented by: Acetaminophen (Ofirmev) 650 mg in 65 mls @ 130 mls/hr IV Q6HP PRN; Protocol PRN Reason: Per Pain Protocol/Fever > 101 Magnesium Sulfate (Magnesium Sulfate) 2 gm in 50 mls @ 50 mls/hr IV UD PRN PRN Reason: MG = or < 1.7 Iron Carb/Multivit/[place]/Folic Acid (Multivitamin W/Minerals) 1 tab PO DAILY [facility] Last Admin: 01/09/20 09:42 Dose: 1 tab Documented by: Levothyroxine Sodium (Synthroid) 50 mcg PO QAMAC [facility] Last Admin: 01/09/20 07:46 Dose: 50 mcg Documented by: Melatonin (Melatonin 3mg Tablet) 3 mg PO HSP PRN PRN Reason: Insomnia Last Admin: 01/08/20 20:37 Dose: 3 mg Documented by: Ondansetron HCl (Zofran Odt) 4 mg SL Q4-6HP PRN; Protocol PRN Reason: Nausea And Vomiting Ondansetron HCl (Zofran) 4 mg IV Q4-6HP PRN; Protocol PRN Reason: Nausea And Vomiting Polyethylene Glycol (Miralax) 17 gm PO DAILYP PRN PRN Reason: Constipation Potassium Chloride (Klor-Con) 40 meq PO DAILYP PRN PRN Reason: K+ < 3.5 Quetiapine Fumarate (Seroquel) 150 mg PO [facility] Last Admin: 01/08/20 20:36 Dose: 150 mg Documented by: Senna/Docusate Sodium (Senna Plus Tablet) 1 tab PO [facility] Last Admin: 01/08/20 20:35 Dose: Not Given Documented by: Sodium Chloride (Saline Flush) 10 ml IV Q8 [facility] Last Admin: 01/09/20 05:25 Dose: Not Given Documented by: Thiamine HCl (Vitamin B1) 100 mg PO DAILY [facility] Last Admin: 01/09/20 09:42 Dose: 100 mg Documented by: Zolpidem Tartrate (Ambien) 10 mg PO [facility] Last Admin: 01/08/20 20:36 Dose: 10 mg Documented by: Medical - PN: A/P - Time Spent With Patient Total time spent is greater than 50% in coordination of care (as documented) at patient's floor/unit and/or counseling patient: 25 - 35 minutes (1) Ankle fracture, bimalleolar, closed Status: Acute Assessment and plan: * Right bimalleolar ankle fracture-orthopedic recommends splinting and follow- up as outpatient in 1 week for further evaluation. No surgery indicated at this time. * Bilateral chest infiltrates consistent with aspiration pneumonia. Continue Augmentin/aspiration precautions * Pain management stable on as needed opioids * Witnessed seizure-status post 2 mg Ativan in ER. No further seizure episode. * Frequent fall -unclear etiology. No overnight arrhythmia on telemetry. No further seizure episode. Echocardiogram pending. Continue PT OT eval and treatment for gait and safety training * Hypertension-held atenolol in light of hypotension. 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 clerk on Plaquenil * History of bipolar disorder-continue prior anti-psych medications * Anxiety/depression disorder-continue SSRI * Chronic kidney disease stage III * Sleep apnea * Hypothyroidism start thyroxine * Full code * Prophylaxis heparin Plan * Continue monitoring * Seizure watch/neuro check * Await echocardiogram * Continue pain management * Splinting/weightbearing/immobilization as per orthopedics * Pre-existing medical condition management on home medications * PT OT/nutrition support * Discharge planning per case management Current Visit: Yes Medical - PN: Qual - VTE Deep Vein Thrombosis/Pulmonary Embolism Present on Admission: No
[2020-01-09] MEDS: AMOXICILLIN/POTASSIUM CLAV 875 MG TABLET PO SCH ×2 (13:14→20:47)
[2020-01-09] MEDS: 0.9 % SODIUM CHLORIDE 1,000 ML IV SCH (13:20)
[2020-01-09] MEDS: DIVALPROEX SODIUM 250 MG TABLET PO SCH (20:42)
[2020-01-09] MEDS: QUEtiapine 100 MG TABLET PO SCH (20:43)
[2020-01-09] MEDS: AMITRIPTYLINE 25 MG TABLET PO SCH (20:44)
[2020-01-09] MEDS: SENNOSIDES/DOCUSATE SODIUM 1 TAB TABLET PO SCH (20:44)
[2020-01-09] MEDS: ZOLPIDEM 5 MG TABLET PO SCH (20:44)
[2020-01-09] MEDS: MELATONIN 3 MG TABLET PO PRN (20:45)
[2020-01-10] MEDS: 0.9 % SODIUM CHLORIDE 1,000 ML IV SCH (04:44)
[2020-01-10] MEDS: 0.9 % SODIUM CHLORIDE 10 ML SYRINGE IV SCH ×3 (05:34→21:16)
[2020-01-10 06:39] LABS: Hematocrit 25.5 % (34.1-44.9); Hemoglobin 8.4 g/dL (11.2-15.7); Mean Cell Volume 103.2 fL (80.0-100.0); Mean Corpuscular HGB Conc 32.9 g/dL (31.0-36.0); Mean Platelet Volume 11.7 fL (7.4-10.4); Platelet Count 171 K/mcL (140-440); RBC 2.47 M/mcL (3.59-5.38); Red Cell Distribution Width 13.8 % (11.5-14.5); WBC 5.1 K/mcL (4.50-11.00)
[2020-01-10 06:56] LABS: Bilirubin,Direct < 0.2 mg/dL (0.0-0.3); Chloride 108 mmol/L (96-108)
[2020-01-10 06:57] LABS: ALT/SGPT 59 U/l (0-40); AST/SGOT 43 U/l (0-37); Albumin 2.8 gm/dL (3.2-5.2); Albumin/Globulin Ratio 1.2 (1.0-2.3); Alkaline Phosphatase 110 U/L (39-117); Bilirubin,Total 0.2 mg/dL (0.0-1.0); Blood Urea Nitrogen 17 mg/dl (6-20); Calcium 8.3 mg/dl (8.6-10.4); Carbon Dioxide 22 mmol/L (22-30); Globulin 2.4 gm/dL (2.2-3.7); Glomerular Filtration Rate 82; Glucose 72 mg/dL (70-105); Lactate Dehydrogenase 239 U/L (94-250); Phosphorous 3.2 mg/dL (2.7-4.5); Triglycerides 57 mg/dl (<150)
[2020-01-10] MEDS: LEVOTHYROXINE 50 MCG TABLET PO SCH (07:20)
[2020-01-10] MEDS: AMOXICILLIN/POTASSIUM CLAV 875 MG TABLET PO SCH ×2 (07:21→18:49)
[2020-01-10] MEDS: HYDROcodone/APAP 5/325MG TABLET PO PRN ×2 (07:27→11:27)
[2020-01-10] MEDS: MAGNESIUM SULFATE 2 GM/50 ML BAG IV PRN (07:56)
[2020-01-10 08:05] LABS: Eosinophils % (Manual) 2 % (0-7); Lymphocytes % 46 % (15-49); Macrocytosis 2+ (NONE SEEN); Monocytes % (Manual) 10 % (1-12); Platelet Estimate NORMAL (NORMAL); RBC Morphology ABNORM (NORMAL); Segmented Neutrophils % 42 % (38-78)
[2020-01-10] MEDS: DULoxetine 30 MG CAPSULE PO SCH (08:20)
[2020-01-10] MEDS: MULTIVIT,THER IRON,CA,FA & MIN 1 TABLET PO SCH (08:20)
[2020-01-10] MEDS: DOCUSATE SODIUM 100 MG CAPSULE PO SCH ×2 (08:20→20:10)
[2020-01-10] MEDS: GABAPENTIN 400 MG CAPSULE PO SCH ×2 (08:20→20:08)
[2020-01-10] MEDS: HEPARIN 5,000 UNIT/ML VIAL SQ SCH ×2 (08:21→20:08)
[2020-01-10] MEDS: HYDROXYCHLOROQUINE 200 MG TABLET PO SCH ×2 (08:21→20:10)
[2020-01-10] MEDS: THIAMINE 100 MG TABLET PO SCH (08:21)
[2020-01-10] MEDS: oxyCODONE/APAP 5/325MG TABLET PO PRN ×2 (15:59→20:09)
[2020-01-10] MEDS: DIVALPROEX SODIUM 250 MG TABLET PO SCH (20:08)
[2020-01-10] MEDS: MELATONIN 3 MG TABLET PO PRN (20:09)
[2020-01-10] MEDS: QUEtiapine 100 MG TABLET PO SCH (20:09)
[2020-01-10] MEDS: ZOLPIDEM 5 MG TABLET PO SCH (20:09)
[2020-01-10] MEDS: SENNOSIDES/DOCUSATE SODIUM 1 TAB TABLET PO SCH (20:10)
[2020-01-10] MEDS: AMITRIPTYLINE 25 MG TABLET PO SCH (20:11)
[2020-01-11] MEDS: 0.9 % SODIUM CHLORIDE 10 ML SYRINGE IV SCH (05:47)
[2020-01-11 06:27] LABS: Hematocrit 26.6 % (34.1-44.9); Hemoglobin 8.7 g/dL (11.2-15.7); Mean Cell Volume 102.3 fL (80.0-100.0); Mean Corpuscular HGB Conc 32.7 g/dL (31.0-36.0); Platelet Count 152 K/mcL (140-440); Red Cell Distribution Width 13.7 % (11.5-14.5); WBC 5.1 K/mcL (4.50-11.00)
[2020-01-11 06:40] LABS: ALT/SGPT 46 U/l (0-40); AST/SGOT 36 U/l (0-37); Albumin/Globulin Ratio 1.2 (1.0-2.3); Alkaline Phosphatase 112 U/L (39-117); Bilirubin,Direct < 0.2 mg/dL (0.0-0.3); Bilirubin,Total 0.2 mg/dL (0.0-1.0); Blood Urea Nitrogen 16 mg/dl (6-20); Calcium 8.5 mg/dl (8.6-10.4); Carbon Dioxide 25 mmol/L (22-30); Chloride 105 mmol/L (96-108); Globulin 2.6 gm/dL (2.2-3.7); Glomerular Filtration Rate 71; Glucose 85 mg/dL (70-105); Lactate Dehydrogenase 227 U/L (94-250); Phosphorous 3.3 mg/dL (2.7-4.5); Triglycerides 77 mg/dl (<150)
[2020-01-11] MEDS: MAGNESIUM SULFATE 2 GM/50 ML BAG IV PRN (06:52)
[2020-01-11] MEDS: LEVOTHYROXINE 50 MCG TABLET PO SCH (06:52)
[2020-01-11] MEDS: oxyCODONE/APAP 5/325MG TABLET PO PRN (06:52)
[2020-01-11 07:46] LABS: Band Neutrophils % 2 % (0-10); Eosinophils % (Manual) 1 % (0-7); Lymphocytes % 54 % (15-49); Macrocytosis 2+ (NONE SEEN); Monocytes % (Manual) 6 % (1-12); Nucleated Red Blood Cells 1 % (0-0); Platelet Estimate NORMAL (NORMAL); RBC Morphology ABNORM (NORMAL); Reactive Lymphocytes 1 % (0-2); Segmented Neutrophils % 36 % (38-78)
--- NOTE | 2020-01-11 07:54 | Internal Med Progress Note ---
Medical - PN: Subj Patient information: Note initiated : 01/10/20 at 7:51 am Service Date, if different from initiated Date: [] Patient: Abril Colon a 59 y/o F admitted on 01/08/20 for seizure. Chief Complaint: [] Interval history: Ms. Colon is a 59 year old F with a history of bipolar disorder/CKD stage III /hypertension/hypothyroidism/anxiety depression who presents to the ER after sustaining a fall With resulting right ankle injury. Patient lives with her aunt and was sneaking into the kitchen to place an Easter card for her Aunt. She had an episode where she endorses as similar to the previous ones where in her legs suddenly gave up and she fell. She was on a stair and landed on her right side twisting and injuring her right ankle. She was evaluated in the ER where she subsequently sustained an unwitnessed partial seizure. She was administered Ativan and subsequently underwent ankle reduction by ER physician. Imaging revealed ankle fracture and subsequently orthopedics was consulted. Hospital service consulted for admission While patient will undergo operative intervention. At time of evaluation patient is alert and was able to answer most the question and endorse history as above. She denies seizure-like episode. She denies vision changes chest pain tearing neck pain diaphoresis lightheadedness or vertigo. She has had multiple prior similar episode which he attributes to hypotension and her medications have been modified multiple times. She has had multiple falls in the past but in the last year has only 2 falls. She denies fever, chills, diarrhea, dysuria, headache, photophobia. 01/08-patient doing well. Per orthopedics surgery would be delayed until improved swelling due to risk of localized wound and delayed healing. Await transfer to care center coordination underway by case management. Creatinine down to 1 LFTs gradually up trending. Hemoglobin 9. Bilateral chest infiltrates on antibiotic coverage(likely aspiration during seizure episode). No overnight seizure or telemetry events, sinus rhythm. No orthostasis. Carotid Doppler right ICA 50 to 69% stenosis. Echocardiogram pending. 01/09-patient doing well. No overnight events. White count 5.1. Creatinine down to 0.8. LFTs normalizing. No concerns per staff. No overnight seizures. Echocardiogram results awaited. Anticipate discharge to SNF in 24 hours. No seizure activity. - Constitutional Vitals: Vital Signs Temp Pulse Resp BP Pulse Ox 97.8 F 76 18 130/73 94 01/11/20 07:11 01/11/20 07:11 01/11/20 07:36 01/11/20 07:11 01/11/20 07:36 Period Temp Pulse Resp BP Sys/Puckett Pulse Ox Last 24 Hr 97.6 F-99.4 F 74-83 12-20 91-130/49-80 93-99 Intake and Output 01/10/20 01/11/20 01/11/20 21:59 05:59 13:59 Intake Total 520 340 Output Total 1000 1400 Balance -480 340 -1400 Weight 193 lb 8 oz Intake & Output: Intake & Output 01/10/20 01/11/20 01/11/20 21:59 05:59 13:59 Intake Total 520 340 Output Total 1000 1400 Balance -480 340 -1400 Weight 193 lb 8 oz Intake: Oral 520 340 Output: Void Amount 1000 1400 Other: Meal Dinner Percent of Meal Consumed 100% Feeding Ability Independent Urine Appearance Clear Urine Color Dark Yellow Dark Yellow Urine Odor Strong Normal Stool Size Large Stool Color Brown Stool Consistency Soft Formed # Bowel Movements 1 General appearance: no acute distress Exam: Nonlabored breathing Alert oriented No anxiety No telemetry events Medical - PN: Obj Da - Labs CBC & Chem 7: 01/11/20 05:30 01/11/20 05:30 Labs: Abnormal Lab Results 01/11/20 01/11/20 01/10/20 05:30 05:30 05:30 RBC 2.60 L Hgb 8.7 L Hct 26.6 L MCV 102.3 H MCH MPV 11.0 H Seg Neutrophils % 36 L Lymphocytes % 54 H Nucleated RBCs 1 H RBC Morphology Abnorm A Macrocytosis 2+ A Chloride Carbon Dioxide Calcium 8.5 L 8.3 L GGT 155 H 144 H AST 43 H ALT 46 H 59 H Alkaline Phosphatase Lactate Dehydrogenase Total Protein 5.6 L 5.2 L Albumin 3.0 L 2.8 L 01/10/20 01/09/20 01/09/20 05:30 04:59 04:59 RBC 2.47 L 2.63 L Hgb 8.4 L 9.0 L Hct 25.5 L 27.6 L MCV 103.2 H 104.9 H MCH 34.2 H MPV 11.7 H 11.2 H Seg Neutrophils % Lymphocytes % Nucleated RBCs RBC Morphology Abnorm A Abnorm A Macrocytosis 2+ A 1+ A Chloride 111 H Carbon Dioxide 20 L Calcium GGT 193 H AST 125 H ALT 92 H Alkaline Phosphatase 149 H Lactate Dehydrogenase 269 H Total Protein 5.6 L Albumin 3.0 L Meds: Medications Acetaminophen (Tylenol) 650 mg PO Q4-6HP PRN; Protocol PRN Reason: Per Pain Protocol/Fever > 101 Amitriptyline HCl (Elavil) 25 mg PO QHS [facility] Last Admin: 01/10/20 20:11 Dose: 25 mg Documented by: Amoxicillin/[facility]avulanate [facility]; Protocol Last Admin: 01/10/20 18:49 Dose: 875 mg Documented by: Bisacodyl (Dulcolax) 10 mg DC Q2-3DAYS PRN PRN Reason: Constipation Divalproex Sodium (Depakote Er) 1,500 mg PO [facility] Last Admin: 01/10/20 20:08 Dose: 1,500 mg Documented by: Docusate Sodium (Colace) 100 mg PO BID [facility] Last Admin: 01/10/20 20:10 Dose: Not Given Documented by: Duloxetine HCl (Cymbalta) 60 mg PO DAILY [facility] Last Admin: 01/10/20 08:20 Dose: 60 mg Documented by: Gabapentin (Neurontin) 1,600 mg PO BID [facility] Last Admin: 01/10/20 20:08 Dose: 1,600 mg Documented by: Heparin Sodium (Porcine) (Heparin) 5,000 unit SQ Q12 [facility] Last Admin: 01/10/20 20:08 Dose: 5,000 unit Documented by: Hydromorphone HCl (Dilaudid) 0 mg IV Q4HP PRN; Protocol PRN Reason: Per Pain Protocol Last Admin: 01/09/20 07:47 Dose: 0.5 mg Documented by: Hydroxychloroquine Sulfate (Plaquenil) 200 mg PO BID [facility] Last Admin: 01/10/20 20:10 Dose: 200 mg Documented by: Acetaminophen (Ofirmev) 650 mg in 65 mls @ 130 mls/hr IV Q6HP PRN; Protocol PRN Reason: Per Pain Protocol/Fever > 101 Magnesium Sulfate (Magnesium Sulfate) 2 gm in 50 mls @ 50 mls/hr IV UD PRN PRN Reason: MG = or < 1.7 Last Admin: 01/11/20 06:52 Dose: 50 mls/hr Documented by: Iron Carb/Multivit/[place]/Folic Acid (Multivitamin W/Minerals) 1 tab PO DAILY [facility] Last Admin: 01/10/20 08:20 Dose: 1 tab Documented by: Levothyroxine Sodium (Synthroid) 50 mcg PO QAMAC [facility] Last Admin: 01/11/20 06:52 Dose: 50 mcg Documented by: Melatonin (Melatonin 3mg Tablet) 3 mg PO HSP PRN PRN Reason: Insomnia Last Admin: 01/10/20 20:09 Dose: 3 mg Documented by: Ondansetron HCl (Zofran Odt) 4 mg SL Q4-6HP PRN; Protocol PRN Reason: Nausea And Vomiting Ondansetron HCl (Zofran) 4 mg IV Q4-6HP PRN; Protocol PRN Reason: Nausea And Vomiting Oxycodone/Acetaminophen (Percocet 5-325 Mg) 1 tab PO Q4HP PRN; Protocol PRN Reason: Per Pain Protocol Last Admin: 01/11/20 06:52 Dose: 1 tab Documented by: Polyethylene Glycol (Miralax) 17 gm PO DAILYP PRN PRN Reason: Constipation Potassium Chloride (Klor-Con) 40 meq PO DAILYP PRN PRN Reason: K+ < 3.5 Quetiapine Fumarate (Seroquel) 150 mg PO [facility] Last Admin: 01/10/20 20:09 Dose: 150 mg Documented by: Senna/Docusate Sodium (Senna Plus Tablet) 1 tab PO [facility] Last Admin: 01/10/20 20:10 Dose: Not Given Documented by: Sodium Chloride (Saline Flush) 10 ml IV Q8 [facility] Last Admin: 01/11/20 05:47 Dose: 10 ml Documented by: Thiamine HCl (Vitamin B1) 100 mg PO DAILY [facility] Last Admin: 01/10/20 08:21 Dose: 100 mg Documented by: Zolpidem Tartrate (Ambien) 10 mg PO [facility] Last Admin: 01/10/20 20:09 Dose: 10 mg Documented by: Medical - PN: A/P - Time Spent With Patient Total time spent is greater than 50% in coordination of care (as documented) at patient's floor/unit and/or counseling patient: 25 - 35 minutes (1) Ankle fracture, bimalleolar, closed Status: Acute Assessment and plan: * Right bimalleolar ankle fracture-orthopedic recommends splinting and follow- up as outpatient in 1 week for further evaluation. No surgery indicated at this time. Continue splint/weightbearing status as per orthopedics * Bilateral chest infiltrates consistent with aspiration pneumonia. Continue Augmentin/aspiration precautions * Pain management stable on as needed opioids * Witnessed seizure-status post 2 mg Ativan in ER. No further seizure episode. * Frequent fall -unclear etiology. No overnight arrhythmia on telemetry. Echocardiogram pending. Continue PT OT eval and treatment for gait and safety training * Hypertension-restart atenolol once systolics over 140. 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
[2020-01-11] MEDS: DOCUSATE SODIUM 100 MG CAPSULE PO SCH (08:23)
[2020-01-11] MEDS: AMOXICILLIN/POTASSIUM CLAV 875 MG TABLET PO SCH (08:23)
[2020-01-11] MEDS: HEPARIN 5,000 UNIT/ML VIAL SQ SCH (08:24)
[2020-01-11] MEDS: HYDROXYCHLOROQUINE 200 MG TABLET PO SCH (08:24)
[2020-01-11] MEDS: DULoxetine 30 MG CAPSULE PO SCH (08:24)
[2020-01-11] MEDS: THIAMINE 100 MG TABLET PO SCH (08:24)
[2020-01-11] MEDS: MULTIVIT,THER IRON,CA,FA & MIN 1 TABLET PO SCH (08:24)
[2020-01-11] MEDS: GABAPENTIN 400 MG CAPSULE PO SCH (08:24)
--- NOTE | 2020-01-11 08:25 | Discharge Summary ---
Medical - DS: Prov Patient information: Note initiated : 01/11/20 at 8:22 am Service Date, if different from initiated Date: [] Patient: Abril Colon 59 y/o F admitted on 01/08/20 for seizure. Chief Complaint: [] Date of admission: 01/08/20 12:08 Discharge date: 01/11/20 Primary care physician: Harshil Sexton Consults: 01/08/20 09:02 Consult to Physician [CONS] Stat Comment: Consulting Provider: Wan Ugalde Reason For Exam: Physician to Consult Consult to Physician [CONS] Stat Comment: Consulting Provider: Rodrick Harris Reason For Exam: Physician to Consult Medical - DS: Meds - Discharge Medications Prescriptions: Amoxicillin/Potassium Clav [Augmentin] 875 mg PO BIDCC #8 tab Prescription Printed Crutch 1 each MC DAILY #1 each Transmission Status: Received by [facility] #[id number] Active and Home Medications: Home Medications levothyroxine 50 mcg capsule 50 mcg PO QDAY 08/19/19 [History Confirmed 01/08/20 Last Taken Unknown] nabumetone 500 mg tablet 500 mg PO BID #60 tab 09/14/19 [Rx Confirmed 01/08/20 Last Taken Unknown] gabapentin 800 mg tablet 1,600 mg PO BID #120 tab 10/11/19 [Rx Confirmed 01/08/20 Last Taken Unknown] hydroxychloroquine 200 mg tablet 200 mg PO BID #60 tab 11/23/19 [Rx Confirmed 01/08/20 Last Taken Unknown] amitriptyline 25 mg tablet 25 mg PO QHS #30 tab 12/28/19 [Rx Confirmed 01/08/20 Last Taken Unknown] cholecalciferol (vitamin D3) 1,250 mcg (50,000 unit) capsule See Rx Instructions .ROUTE .COMPLEX #12 unknown measurement unit code: capsule 01/03/20 [Rx Confirm ed 01/08/20 Last Taken Unknown] atenolol 25 mg tablet 25 mg PO QDAY tab 01/04/20 [History Confirmed 01/08/20 Last Taken Unknown] eszopiclone 3 mg tablet 3 mg PO HS #30 tab 01/04/20 [Rx Confirmed 01/08/20 Last Taken Unknown] Crutch 1 each MC DAILY #1 each 01/08/20 [Rx Last Taken Unknown] DULoxetine HCL [Cymbalta] 60 tab PO DAILY 01/08/20 [History Confirmed 01/08/20 Last Taken Unknown] Divalproex Sodium [Divalproex Sodium ER] 1,500 tab PO HS 01/08/20 [History Confirmed 01/08/20 Last Taken Unknown] QUEtiapine FUMARATE [Seroquel] 150 tab PO HS 01/08/20 [History Confirmed 01/08/20 Last Taken Unknown] Amoxicillin/Potassium Clav [Augmentin] 875 mg PO BIDCC #8 tab 01/11/20 [Rx Last Taken Unknown] Medical - DS: Hosp Hospital Course: Discharge diagnosis * Right bimalleolar ankle fracture-orthopedic recommends splinting and follow- up as outpatient in 1 week for further evaluation. No surgery indicated at this time. Continue splint/weightbearing status as per orthopedics * Bilateral chest infiltrates consistent with aspiration pneumonia. Continue Augmentin/aspiration precautions for additional 4 days * Pain management well controlled * Witnessed partial seizure-status post 2 mg Ativan in ER. No further seizure episode during hospitalization. * Frequent fall -continue fall precautions/ PT OT eval and treatment for gait and safety training. Negative neuroimaging/no evidence of arrhythmia. 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 Colon is a 59 year old F with a history of bipolar disorder/CKD stage III/hypertension/hypothyroidism/anxiety depression who presents to the ER after sustaining a fall With resulting right ankle injury. Patient lives with her aunt and was sneaking into the kitchen to place an Easter card for her Aunt. She had an episode where she endorses as similar to the previous ones where in her legs suddenly gave up and she fell. She was on a stair and landed on her right side twisting and injuring her right ankle. She was evaluated in the ER where she subsequently sustained an unwitnessed partial seizure. She was administered Ativan and subsequently underwent ankle reduction by ER physician. Imaging revealed ankle fracture and subsequently orthopedics was consulted. Hospital service consulted for admission While patient will undergo operative intervention. At time of evaluation patient is alert and was able to answer most the question and endorse history as above. She denies seizure-like episode. She denies vision changes chest pain tearing neck pain diaphoresis lightheadedness or vertigo. She has had multiple prior similar episode which he attributes to hypotension and her medications have been modified multiple times. She has had multiple falls in the past but in the last year has only 2 falls. She denies fever, chills, diarrhea, dysuria, headache, photophobia. 01/08-patient doing well. Per orthopedics surgery would be delayed until improved swelling due to risk of localized wound and delayed healing. Await transfer to care center coordination underway by case management. Creatinine down to 1 LFTs gradually up trending. Hemoglobin 9. Bilateral chest infiltrates on antibiotic coverage(likely aspiration during seizure episode). No overnight seizure or telemetry events, sinus rhythm. No orthostasis. Carotid Doppler right ICA 50 to 69% stenosis. Echocardiogram pending. 01/09-patient doing well. No overnight events. White count 5.1. Creatinine down to 0.8. LFTs normalizing. No concerns per staff. No overnight seizures. Echocardiogram results awaited. Anticipate discharge to SNF in 24 hours. No seizure activity. 01/10-discharging to SNF with advised to follow-up with Dr. Nuñez orthopedics in 1 week for evaluation and treatment of right bimalleolar fracture. Continue antibiotics additional 4 days. Continue aspiration cautions. Pain management. Discharge diagnosis: . - Time Spent with Patient Total time spent providing and/or coordinating discharge services: Greater than 30 minutes Medical - DS: Exam - Constitutional Vitals: Vital Signs Temp Pulse Pulse Resp BP BP Pulse Ox 01/11/20 07:36 18 94 01/11/20 07:11 97.8 F 76 18 130/73 94 01/11/20 06:00 97.6 F 74 16 128/74 93 01/11/20 04:18 97.7 F 77 12 108/61 93 01/11/20 02:00 98.4 F 75 14 100/49 95 01/10/20 23:53 97.7 F 83 12 107/58 98 01/10/20 22:00 97.8 F 82 16 100/51 95 01/10/20 20:33 98.2 F 16 107/59 99 01/10/20 19:25 99 01/10/20 18:03 18 112/80 01/10/20 16:35 91/49 01/10/20 16:01 99.4 F H 20 97/74 99 01/10/20 14:01 16 114/74 01/10/20 12:01 98.4 F 16 114/70 96 01/10/20 09:57 98.5 F 75 16 99/63 98 Intake and Output 01/10/20 01/11/20 01/11/20 21:59 05:59 13:59 Intake Total 520 340 Output Total 1000 1400 Balance -480 340 -1400 Intake: Oral 520 340 Output: Void Amount 1000 1400 Other: Meal Dinner Percent of Meal Consumed 100% Feeding Ability Independent Urine Appearance Clear Urine Color Dark Yellow Dark Yellow Urine Odor Strong Normal Stool Size Large Stool Color Brown Stool Consistency Soft Formed # Bowel Movements 1 Weight 193 lb 8 oz Medical - DS: Data Labs on day of discharge: Labs from last 24 hours 01/11/20 01/11/20 05:30 05:30 WBC 5.1 RBC 2.60 L Hgb 8.7 L Hct 26.6 L MCV 102.3 H MCH 33.5 MCHC 32.7 RDW 13.7 Plt Count 152 MPV 11.0 H Total Counted 100 Seg Neutrophils % 36 L Band Neutrophils % 2 Lymphocytes % 54 H Monocytes % (Manual) 6 Eosinophils % (Manual) 1 Nucleated RBCs 1 H Reactive Lymphocytes 1 Platelet Estimate Normal RBC Morphology Abnorm A Macrocytosis 2+ A Sodium 140 Potassium 4.8 Chloride 105 Carbon Dioxide 25 Anion Gap 10.0 BUN 16 Creatinine 0.9 GFR Calculation 71 Glucose 85 Uric Acid 5.0 Calcium 8.5 L Phosphorus 3.3 Magnesium 1.6 Total Bilirubin 0.2 Direct Bilirubin < 0.2 GGT 155 H AST 36 ALT 46 H Alkaline Phosphatase 112 Lactate Dehydrogenase 227 Total Protein 5.6 L Albumin 3.0 L Globulin 2.6 Albumin/Globulin Ratio 1.2 Triglycerides 77 Medical - DS: A/P - Patient/Caregiver Discharge Instructions Activity: as per physical therapy, increase activity as tolerated Diet: Regular Diet Additional Instructions: Follow-up PCP in 5 days F/u orthopedics as scheduled by orthopedic, continue recommendations including weightbearing/splinting/pain management as per orthopedics I recommend [facility] physician to check CBC BMP UA as a posthospital follow-up in 1 week. Antibiotics for additional 4 days Continue fall precautions Continue aggressive PT OT evaluation and treatment at [facility]. ST eval and treatment if indicated All meals on chair sitting upright at 90 degrees to prevent aspiration Return to ER if worsening fever chills shortness of breath, diarrhea, bleeding Review risk and side effect profile of medications including antibiotics. Side effect may include mild to severe reaction including rash, diarrhea, cdiff and even which can be prevented by close follow-up with PCP and monitoring for side effects Continue diet and activity as advised Discussed importance of medication adherence Please review medication list with patient prior to discharge Please schedule follow-up with PCP/Providers prior to discharge and provide printouts Prescriptions: Amoxicillin/Potassium Clav [Augmentin] 875 mg PO BIDCC #8 tab Prescription Printed Crutch 1 each MC DAILY #1 each Transmission Status: Received by [facility] #[id number] Other Amb Orders: OT Discharge Order Facility: [facility], Location: [facility] Physical Therapy at Discharge - General Facility: [facility], Location: [facility] - Problem Maintenance (1) Ankle fracture, bimalleolar, closed Status: Acute Qualifiers: Encounter type: initial encounter Laterality: right Qualified Code(s): S82.841A - Displaced bimalleolar fracture of right lower leg, initial encounter for closed fracture - Follow up Plan Follow up with: Rodrick Harris MD [Physician] - Disposition: Xfer SNF Prognosis: Good Rehab Potential: Fair I certify that the patient requires SNF services: Yes Overall status at discharge: patient is progressing back to baseline Medical - DS: Qual - VTE Deep Vein Thrombosis/Pulmonary Embolism Present on Admission: No
== END 2020-01-11 09:17 ==
LOC: ICU 05:32 → ED 05:32 → ICU 12:08
PROVIDERS: ADMIT Internal Medicine; ATTEND Internal Medicine